=== PATIENT | female | born 1940 | race African-American/Black ===

== ENCOUNTER 2018-02-11 12:16 | Inpatient (IN) | payer MEDICARE, MEDICAID ==
[~2018-02-11] VITALS: Ht 162.6 cm; Wt 54.9 kg
[2018-02-11] MEDS ORDERED: ONDANSETRON HCL 4MG/2ML INJ IV STA (13:24)
[2018-02-11] MEDS ORDERED: SODIUM CHLORIDE 0.9% 1,000 ML IV ONE (13:24)
[2018-02-11] MEDS ORDERED: MORPHINE SULFATE 4 MG/ML CPJ (NOT FOR IM USE) IV STA (13:24)
[2018-02-11 14:24] LABS: BASOPHILS % 0.9 % (0.0-2.0); EOSINOPHILS % 0.5 % (0.0-5.0); HEMATOCRIT. 35.8 % (36.0-48.0); HEMOGLOBIN. 11.9 g/dL (12.0-16.0); LYMPHOCYTES % 7.6 % (20.0-50.0); MEAN CORPUSCULAR HEMOGLOBIN 30.5 pg (28.0-32.0); MEAN CORPUSCULAR VOLUME 92.1 fL (81.0-99.0); MEAN PLATELET VOLUME 8.2 fl (7.4-10.4); PLATELET 479 x1000/uL (130-400); RED BLOOD CELL COUNT 3.89 mill/uL (4.2-5.4); RED CELL DISTRIBUTION WIDTH 14.5 % (11.6-14.6)
[2018-02-11 14:33] LABS: CHLORIDE 107 mEq/L (98-107); PARTIAL THROMBOPLASTIN TIME 26.6 sec (23.4-31.0); PROTHROMBIN TIME 10.3 sec (9.1-11.1)
[2018-02-11 14:39] LABS: ETHANOL BLOOD < 10 mg/dL
[2018-02-11 20:00] VITALS: BP 111/79
[2018-02-11 20:29] VITALS: BP 108/76
[2018-02-11] MEDS ORDERED: GUAIFENESIN 200MG/10ML SUGAR FREE UDC PO PRN (22:00)
[2018-02-11] MEDS ORDERED: DIPHENHYDRAMINE 50MG/ML VIAL IV PRN (22:00)
[2018-02-11] MEDS ORDERED: MAGNESIUM/ALUMINUM HYDROXIDE/SIMETHICONE 30ML UDC PO PRN (22:00)
[2018-02-12] VITALS: BP 134/86
[2018-02-12] MEDS: MORPHINE SULFATE 4 MG/ML CPJ (NOT FOR IM USE) IV PRN ×3 (00:36→17:22)
[2018-02-12] MEDS: DEXT 5%/0.45% NACL 1000ML 1,000 ML IV SCH ×2 (00:44→17:21)
[2018-02-12] MEDS: ONDANSETRON HCL 4MG/2ML INJ IV PRN (01:08)
[2018-02-12] MEDS: DOCUSATE SODIUM 100MG CAPSULE PO PRN (03:33)
[2018-02-12 04:00] VITALS: BP 136/82
[2018-02-12] MEDS: LORAZEPAM 0.5MG TABLET PO PRN (05:06)
[2018-02-12 06:51] LABS: BASOPHILS % 0.6 % (0.0-2.0); EOSINOPHILS % 1.3 % (0.0-5.0); HEMATOCRIT. 31.9 % (36.0-48.0); HEMOGLOBIN. 10.3 g/dL (12.0-16.0); LYMPHOCYTES % 9.6 % (20.0-50.0); MEAN CORPUSCULAR HEMOGLOBIN 30.2 pg (28.0-32.0); MEAN CORPUSCULAR VOLUME 93.3 fL (81.0-99.0); MEAN PLATELET VOLUME 7.3 fl (7.4-10.4); MONOCYTES % 7.5 % (2.0-8.0); PLATELET 428 x1000/uL (130-400); RED BLOOD CELL COUNT 3.42 mill/uL (4.2-5.4); RED CELL DISTRIBUTION WIDTH 14.4 % (11.6-14.6)
[2018-02-12 07:17] LABS: CHLORIDE 107 mEq/L (98-107)
[2018-02-12 07:27] LABS: LDL CHOLESTEROL 82 mg/dL (5-100); PHOSPHORUS 3.4 mg/dL (2.5-4.9)
[2018-02-12 07:29] LABS: HDL CHOLESTEROL 49 mg/dL (40-59); T4 FREE 1.05 ng/dL (0.76-1.46)
[2018-02-12 08:00] VITALS: BP 134/82
[2018-02-12] MEDS: ENOXAPARIN 40MG/0.4ML SYR SUBCUT SCH (09:19)
[2018-02-12] MEDS: HYDROCODONE/ACETAMINOPHEN 5/325MG TABLET PO PRN ×2 (09:20→21:04)
[2018-02-12 12:00] VITALS: BP 111/75
[2018-02-12 16:00] VITALS: BP 152/85
[2018-02-12 20:00] VITALS: BP 126/74
[2018-02-13] VITALS: BP 139/96
[2018-02-13 04:00] VITALS: BP 153/97
[2018-02-13 08:00] VITALS: BP 143/98
[2018-02-13] MEDS: DEXT 5%/0.45% NACL 1000ML 1,000 ML IV SCH (08:44)
[2018-02-13] MEDS: DOCUSATE SODIUM 100MG CAPSULE PO PRN (08:45)
[2018-02-13] MEDS: ENOXAPARIN 40MG/0.4ML SYR SUBCUT SCH (08:46)
[2018-02-13] MEDS: MORPHINE SULFATE 4 MG/ML CPJ (NOT FOR IM USE) IV PRN ×2 (08:48→15:21)
[2018-02-13 12:00] VITALS: BP 164/130
[2018-02-13] MEDS: CLONIDINE 0.1MG TABLET PO PRN (15:27)
[2018-02-13 16:00] VITALS: BP 125/66
[2018-02-13 20:00] VITALS: BP 99/81
[2018-02-13] MEDS: HYDROCODONE/ACETAMINOPHEN 5/325MG TABLET PO PRN (20:12)
[2018-02-14] VITALS: BP 119/81
[2018-02-14] MEDS: DEXT 5%/0.45% NACL 1000ML 1,000 ML IV SCH ×2 (03:33→22:23)
[2018-02-14] MEDS: MORPHINE SULFATE 4 MG/ML CPJ (NOT FOR IM USE) IV PRN ×2 (03:46→08:38)
[2018-02-14 04:00] VITALS: BP 136/93
[2018-02-14 08:00] VITALS: BP 122/65
[2018-02-14 08:26] LABS: BASOPHILS % 0.4 % (0.0-2.0); EOSINOPHILS % 0.4 % (0.0-5.0); HEMATOCRIT. 33.1 % (36.0-48.0); HEMOGLOBIN. 10.8 g/dL (12.0-16.0); LYMPHOCYTES % 8.4 % (20.0-50.0); MEAN CORPUSCULAR HEMOGLOBIN 30.2 pg (28.0-32.0); MEAN CORPUSCULAR VOLUME 92.4 fL (81.0-99.0); MEAN PLATELET VOLUME 7.8 fl (7.4-10.4); MONOCYTES % 7.6 % (2.0-8.0); NEUTROPHILS % 83.2 % (40.0-76.0); PLATELET 369 x1000/uL (130-400); RED BLOOD CELL COUNT 3.58 mill/uL (4.2-5.4); RED CELL DISTRIBUTION WIDTH 14.2 % (11.6-14.6)
[2018-02-14] MEDS: ENOXAPARIN 40MG/0.4ML SYR SUBCUT SCH (08:37)
[2018-02-14 08:39] LABS: CHLORIDE 101 mEq/L (98-107)
[2018-02-14 12:00] VITALS: BP 129/88
[2018-02-14] MEDS: HYDROCODONE/ACETAMINOPHEN 10/325MG TABLET PO PRN ×3 (12:24→21:43)
[2018-02-14] MEDS ORDERED: IOHEXOL-350 100 ML BOTTLE ONE (14:25)
[2018-02-14 14:44] LABS: CLARITY URINE CLOUDY (CLEAR); COLOR URINE YELLOW (YELLOW); KETONES URINE NEGATIVE (NEGATIVE); LEUKOCYTE ESTERASE URINE 1+ (NEGATIVE); NITRITE URINE POSITIVE (NEGATIVE); OCCULT BLOOD URINE 1+ (NEGATIVE); PROTEIN URINE NEGATIVE (NEGATIVE); SPECIFIC GRAVITY URINE 1.016 (1.005-1.030); UROBILINOGEN URINE 0.2 E.U./dL (0.2-1.0)
[2018-02-14 16:00] VITALS: BP 115/73
[2018-02-14] MEDS: DOCUSATE SODIUM 100MG CAPSULE PO PRN (20:53)
[2018-02-15] VITALS (69 sets, daily range): BP systolic 43–151; BP diastolic 22–135
[2018-02-15] MEDS: IPRATROPIUM/ALBUTEROL 0.5-3(2.5)MG/3ML NEB INH PRN (02:56)
[2018-02-15 06:07] LABS: BG BASE EXCESS 0.4 mmol/L (-2.0-2.0); BG CARBOXYHEMOGLOBIN 1.5 % (0.5-1.5); BG DEOXYHEMOGLOBIN 7.3 % (0.0-5.0); BG FRACTION INSPIRED OXYGEN 36; BG HCO3 ACT 23.6 mmol/L (22.0-26.0); BG METHEMOGLOBIN 0.1 % (0.0-1.5); BG OXYGEN SATURATION 92.6 % (92.0-98.5); BG OXYHEMOGLOBIN 91.1 % (94.0-97.0); BG PH 7.472 (7.350-7.450); BG PO2 64.2 mmHg (75.0-100.0); BG SAMPLE SITE RIGHT RADIAL; BG VENT MODE NASAL CANNULA
[2018-02-15] MEDS: MORPHINE SULFATE 4 MG/ML CPJ (NOT FOR IM USE) IV PRN ×3 (08:02→20:58)
[2018-02-15] MEDS: ENOXAPARIN 40MG/0.4ML SYR SUBCUT SCH (08:03)
[2018-02-15] MEDS ORDERED: CEFTRIAXONE 1 G PREMIX 50 ML IV SCH (08:45)
[2018-02-15] MEDS ORDERED: DILTIAZEM HCL 5MG/ML 5ML VIAL IV SCH (09:15)
[2018-02-15] MEDS: PHENYLEPHRINE 20 MG in DEXT 5% WATER 248 ML IV PRN ×2 (09:32→13:04)
[2018-02-15] MEDS: DILTIAZEM HCL 125 MG in DEXT 5% WATER 100 ML IV PRN (09:38)
[2018-02-15] MEDS: DEXT 5%/0.45% NACL 1000ML 1,000 ML IV SCH (11:13)
[2018-02-15] MEDS: LEVOFLOXACIN 750MG PREMIX 150 ML IV SCH (11:13)
[2018-02-15 11:22] LABS: CREATINE KINASE 158 IU/L (26-192)
[2018-02-15] MEDS ORDERED: DIGOXIN 500MCG/2ML AMP IV NR (12:59)
[2018-02-15] MEDS: ACETAMINOPHEN 325MG TABLET PO PRN (13:08)
[2018-02-15] MEDS ORDERED: DEXT 5% IV PRN (13:16)
[2018-02-15] MEDS ORDERED: WATER IV PRN (13:16)
[2018-02-15] MEDS ORDERED: PHENYLEPHRINE IV PRN (13:16)
[2018-02-15] MEDS: BUDESONIDE 0.5MG/2ML NEB HHN SCH ×2 (16:31→20:21)
[2018-02-15] MEDS: IPRATROPIUM BROMIDE (0.02%) 0.5MG/2.5ML NEB HHN SCH ×2 (16:31→20:21)
[2018-02-15] MEDS: PHENYLEPHRINE 40MG in DEXT 5% WATER 250ML (QUADRUPLE CONC) IV PRN (17:40)
[2018-02-16] VITALS (78 sets, daily range): BP systolic 67–142; BP diastolic 33–83
[2018-02-16] MEDS: IPRATROPIUM BROMIDE (0.02%) 0.5MG/2.5ML NEB HHN SCH ×4 (01:05→20:31)
[2018-02-16] MEDS: PHENYLEPHRINE 40MG in DEXT 5% WATER 250ML (QUADRUPLE CONC) IV PRN ×2 (01:09→09:20)
[2018-02-16] MEDS: MORPHINE SULFATE 4 MG/ML CPJ (NOT FOR IM USE) IV PRN ×4 (02:27→21:25)
[2018-02-16 05:57] LABS: HEMATOCRIT. 29.7 % (36.0-48.0); HEMOGLOBIN. 9.6 g/dL (12.0-16.0); MEAN CORPUSCULAR HEMOGLOBIN 30.1 pg (28.0-32.0); MEAN CORPUSCULAR VOLUME 93.2 fL (81.0-99.0); MEAN PLATELET VOLUME 8.1 fl (7.4-10.4); PLATELET 300 x1000/uL (130-400); RED BLOOD CELL COUNT 3.19 mill/uL (4.2-5.4); RED CELL DISTRIBUTION WIDTH 14.6 % (11.6-14.6)
[2018-02-16 05:58] LABS: CHLORIDE 105 mEq/L (98-107)
[2018-02-16] MEDS: DILTIAZEM HCL 125 MG in DEXT 5% WATER 100 ML IV PRN (06:34)
[2018-02-16] MEDS: DEXT 5%/0.45% NACL 1000ML 1,000 ML IV SCH (06:35)
[2018-02-16] MEDS: BUDESONIDE 0.5MG/2ML NEB HHN SCH ×2 (08:25→20:31)
[2018-02-16] MEDS: DOCUSATE SODIUM 100MG CAPSULE PO PRN (09:08)
[2018-02-16] MEDS: HYDROCODONE/ACETAMINOPHEN 5/325MG TABLET PO PRN (09:09)
[2018-02-16] MEDS: LORAZEPAM 0.5MG TABLET PO PRN ×2 (09:09→15:27)
[2018-02-16] MEDS: ENOXAPARIN 40MG/0.4ML SYR SUBCUT SCH (09:14)
[2018-02-16 10:30] LABS: PLATELET ESTIMATE NORMAL
[2018-02-16] MEDS: DILTIAZEM HCL 60MG TABLET PO SCH ×2 (13:27→21:25)
[2018-02-16] MEDS: METRONIDAZOLE 500 MG PREMIX 100 ML IV SCH ×2 (13:27→21:25)
[2018-02-16] MEDS ORDERED: LACTULOSE 20G/30ML UDC PO NR (17:15)
[2018-02-16 20:28] LABS: *AMPHETAMINES SCREEN URINE NEGATIVE (NEGATIVE); *BARBITURATES SCREEN URINE NEGATIVE (NEGATIVE)
[2018-02-16 20:29] LABS: *BENZODIAZEPINES SCREEN URINE NEGATIVE (NEGATIVE); *COCAINE SCREEN URINE NEGATIVE (NEGATIVE); CANNABINOID URINE SCREEN NEGATIVE (NEGATIVE); METHADONE URINE SCREEN NEGATIVE (NEGATIVE); OPIATES URINE SCREEN PRESUMTIVE POSITIVE (NEGATIVE); PHENCYCLIDINE URINE SCREEN NEGATIVE (NEGATIVE)
[2018-02-17] VITALS (13 sets, daily range): BP systolic 97–131; BP diastolic 56–90
[2018-02-17] MEDS: IPRATROPIUM BROMIDE (0.02%) 0.5MG/2.5ML NEB HHN SCH ×4 (01:58→19:56)
[2018-02-17] MEDS: METRONIDAZOLE 500 MG PREMIX 100 ML IV SCH ×2 (04:20→13:50)
[2018-02-17] MEDS: MORPHINE SULFATE 4 MG/ML CPJ (NOT FOR IM USE) IV PRN ×4 (04:20→18:59)
[2018-02-17] MEDS: DILTIAZEM HCL 60MG TABLET PO SCH ×3 (04:21→22:00)
[2018-02-17] MEDS: DEXT 5%/0.45% NACL 1000ML 1,000 ML IV SCH (04:22)
[2018-02-17 05:01] LABS: BASOPHILS % 0.5 % (0.0-2.0); EOSINOPHILS % 1.3 % (0.0-5.0); HEMATOCRIT. 27.4 % (36.0-48.0); HEMOGLOBIN. 9.1 g/dL (12.0-16.0); LYMPHOCYTES % 8.3 % (20.0-50.0); MEAN CORPUSCULAR HEMOGLOBIN 30.4 pg (28.0-32.0); MEAN CORPUSCULAR VOLUME 91.7 fL (81.0-99.0); MEAN PLATELET VOLUME 8.1 fl (7.4-10.4); MONOCYTES % 7.4 % (2.0-8.0); NEUTROPHILS % 82.5 % (40.0-76.0); PLATELET 219 x1000/uL (130-400); RED BLOOD CELL COUNT 2.98 mill/uL (4.2-5.4); RED CELL DISTRIBUTION WIDTH 14.3 % (11.6-14.6)
[2018-02-17 05:16] LABS: CHLORIDE 106 mEq/L (98-107)
[2018-02-17] MEDS: ENOXAPARIN 40MG/0.4ML SYR SUBCUT SCH (08:25)
[2018-02-17] MEDS: BUDESONIDE 0.5MG/2ML NEB HHN SCH ×2 (08:41→19:56)
[2018-02-17] MEDS ORDERED: DOCUSATE SODIUM 250MG CAPSULE PO NR (09:45)
[2018-02-17] MEDS ORDERED: POTASSIUM CHLORIDE 20MEQ/PACKET PO NR (10:30)
[2018-02-17] MEDS: MAGNESIUM OXIDE 400MG TABLET PO SCH (12:12)
[2018-02-17] MEDS: LEVOFLOXACIN 750MG PREMIX 150 ML IV SCH ×2 (12:12→12:17)
[2018-02-17] MEDS: ALPRAZOLAM 0.25 MG TABLET PO PRN (21:21)
[2018-02-17] MEDS: HYDROCODONE/ACETAMINOPHEN 10/325MG TABLET PO PRN (21:22)
[2018-02-18] VITALS: BP 126/89
[2018-02-18] MEDS: METRONIDAZOLE 500 MG PREMIX 100 ML IV SCH ×4 (01:03→21:05)
[2018-02-18] MEDS: IPRATROPIUM BROMIDE (0.02%) 0.5MG/2.5ML NEB HHN SCH ×2 (01:21→08:03)
[2018-02-18 04:00] VITALS: BP 155/105
[2018-02-18] MEDS: CLONIDINE 0.1MG TABLET PO PRN (04:48)
[2018-02-18] MEDS: LACTULOSE 20G/30ML UDC PO PRN (05:19)
[2018-02-18] MEDS: MORPHINE SULFATE 4 MG/ML CPJ (NOT FOR IM USE) IV PRN ×2 (05:20→18:56)
[2018-02-18] MEDS: DILTIAZEM HCL 60MG TABLET PO SCH ×3 (06:14→21:02)
[2018-02-18 06:43] LABS: BASOPHILS % 0.6 % (0.0-2.0); EOSINOPHILS % 2.1 % (0.0-5.0); HEMATOCRIT. 30.5 % (36.0-48.0); HEMOGLOBIN. 10.3 g/dL (12.0-16.0); LYMPHOCYTES % 14.5 % (20.0-50.0); MEAN CORPUSCULAR HEMOGLOBIN 30.7 pg (28.0-32.0); MEAN CORPUSCULAR VOLUME 90.8 fL (81.0-99.0); MEAN PLATELET VOLUME 8.1 fl (7.4-10.4); MONOCYTES % 7.9 % (2.0-8.0); NEUTROPHILS % 74.9 % (40.0-76.0); PLATELET 252 x1000/uL (130-400); RED BLOOD CELL COUNT 3.36 mill/uL (4.2-5.4); RED CELL DISTRIBUTION WIDTH 14.3 % (11.6-14.6)
[2018-02-18 06:50] LABS: CHLORIDE 106 mEq/L (98-107)
[2018-02-18 08:00] VITALS: BP 110/81
[2018-02-18] MEDS: BUDESONIDE 0.5MG/2ML NEB HHN SCH (08:03)
[2018-02-18] MEDS: ALPRAZOLAM 0.25 MG TABLET PO PRN (08:34)
[2018-02-18] MEDS: HYDROCODONE/ACETAMINOPHEN 10/325MG TABLET PO PRN ×3 (08:34→22:09)
[2018-02-18] MEDS: MAGNESIUM OXIDE 400MG TABLET PO SCH (08:34)
[2018-02-18] MEDS: DOCUSATE SODIUM 250MG CAPSULE PO SCH (08:34)
[2018-02-18] MEDS: ENOXAPARIN 40MG/0.4ML SYR SUBCUT SCH (08:35)
[2018-02-18 12:00] VITALS: BP 114/69
[2018-02-18] MEDS ORDERED: LACTULOSE 20G/30ML UDC PO SCH (14:15)
[2018-02-18 16:00] VITALS: BP 128/88
[2018-02-18] MEDS ORDERED: SORBITOL 70% SOLN 30ML PO SCH (16:00)
[2018-02-18 19:47] VITALS: BP 109/76
[2018-02-18] MEDS: IPRATROPIUM/ALBUTEROL 0.5-3(2.5)MG/3ML NEB INH PRN (20:20)
[2018-02-18] MEDS: LEVOFLOXACIN 750MG PREMIX 150 ML IV SCH (21:01)
[2018-02-19] VITALS: BP 117/74
[2018-02-19] MEDS: IPRATROPIUM/ALBUTEROL 0.5-3(2.5)MG/3ML NEB INH PRN ×3 (01:54→15:31)
[2018-02-19 04:00] VITALS: BP 116/74
[2018-02-19] MEDS: HYDROCODONE/ACETAMINOPHEN 10/325MG TABLET PO PRN ×3 (04:18→18:08)
[2018-02-19] MEDS: METRONIDAZOLE 500 MG PREMIX 100 ML IV SCH ×3 (05:15→21:13)
[2018-02-19] MEDS: MORPHINE SULFATE 4 MG/ML CPJ (NOT FOR IM USE) IV PRN ×2 (05:16→16:44)
[2018-02-19] MEDS: DILTIAZEM HCL 60MG TABLET PO SCH ×3 (05:17→21:13)
[2018-02-19 07:01] LABS: BASOPHILS % 0.5 % (0.0-2.0); EOSINOPHILS % 1.2 % (0.0-5.0); HEMATOCRIT. 32.3 % (36.0-48.0); HEMOGLOBIN. 10.6 g/dL (12.0-16.0); LYMPHOCYTES % 11.4 % (20.0-50.0); MEAN CORPUSCULAR HEMOGLOBIN 29.9 pg (28.0-32.0); MEAN PLATELET VOLUME 8.4 fl (7.4-10.4); MONOCYTES % 7.9 % (2.0-8.0); PLATELET 245 x1000/uL (130-400); RED BLOOD CELL COUNT 3.55 mill/uL (4.2-5.4); RED CELL DISTRIBUTION WIDTH 14.2 % (11.6-14.6)
[2018-02-19 07:11] LABS: CHLORIDE 104 mEq/L (98-107)
[2018-02-19] MEDS: DOCUSATE SODIUM 250MG CAPSULE PO SCH (08:24)
[2018-02-19] MEDS: MAGNESIUM OXIDE 400MG TABLET PO SCH (08:24)
[2018-02-19] MEDS: ENOXAPARIN 40MG/0.4ML SYR SUBCUT SCH (08:25)
[2018-02-19] MEDS: IPRATROPIUM BROMIDE (0.02%) 0.5MG/2.5ML NEB HHN SCH ×3 (09:49→21:58)
[2018-02-19] MEDS: LEVOFLOXACIN 750MG PREMIX 150 ML IV SCH (10:56)
[2018-02-19 12:00] VITALS: BP 99/71
[2018-02-19] MEDS: ONDANSETRON HCL 4MG/2ML INJ IV PRN (13:17)
[2018-02-19] MEDS: LACTULOSE 20G/30ML UDC PO PRN (13:19)
[2018-02-19] MEDS ORDERED: NA PHOS,M-B/NA PHOS,DI-BA ENEMA 118ML PR PRN (13:45)
[2018-02-19 15:23] LABS: CLARITY URINE CLEAR (CLEAR); COLOR URINE YELLOW (YELLOW); KETONES URINE NEGATIVE (NEGATIVE); LEUKOCYTE ESTERASE URINE 1+ (NEGATIVE); NITRITE URINE NEGATIVE (NEGATIVE); OCCULT BLOOD URINE 1+ (NEGATIVE); PH URINE 7.5 (4.5-8.0); PROTEIN URINE 1+ (NEGATIVE); SPECIFIC GRAVITY URINE 1.017 (1.005-1.030)
[2018-02-19 16:00] VITALS: BP 128/77
[2018-02-19 20:00] VITALS: BP 115/66
[2018-02-19] MEDS: RISPERIDONE 0.25MG TABLET PO SCH (21:12)
[2018-02-20] VITALS: BP 108/65
[2018-02-20] MEDS: MORPHINE SULFATE 4 MG/ML CPJ (NOT FOR IM USE) IV PRN ×2 (00:22→20:28)
[2018-02-20] MEDS: IPRATROPIUM BROMIDE (0.02%) 0.5MG/2.5ML NEB HHN SCH ×3 (00:37→15:27)
[2018-02-20] MEDS: ALPRAZOLAM 0.25 MG TABLET PO PRN ×3 (01:38→20:25)
[2018-02-20 04:00] VITALS: BP 101/69
[2018-02-20] MEDS: METRONIDAZOLE 500 MG PREMIX 100 ML IV SCH ×3 (05:07→22:06)
[2018-02-20] MEDS: DILTIAZEM HCL 60MG TABLET PO SCH ×3 (05:09→21:07)
[2018-02-20 08:00] VITALS: BP 111/82
[2018-02-20] MEDS: ENOXAPARIN 40MG/0.4ML SYR SUBCUT SCH (09:25)
[2018-02-20] MEDS: MAGNESIUM OXIDE 400MG TABLET PO SCH (09:26)
[2018-02-20] MEDS: ACETAMINOPHEN 325MG TABLET PO PRN (09:26)
[2018-02-20] MEDS: DOCUSATE SODIUM 250MG CAPSULE PO SCH (09:26)
[2018-02-20] MEDS ORDERED: LACTULOSE 20G/30ML UDC PO NR (10:15)
[2018-02-20 12:00] VITALS: BP 104/68
[2018-02-20] MEDS: LACTULOSE 20G/30ML UDC PO PRN (14:52)
[2018-02-20 16:00] VITALS: BP 122/81
[2018-02-20 20:00] VITALS: BP 104/73
[2018-02-20] MEDS: IPRATROPIUM/ALBUTEROL 0.5-3(2.5)MG/3ML NEB INH PRN (21:02)
[2018-02-20] MEDS: RISPERIDONE 0.25MG TABLET PO SCH (22:06)
[2018-02-21] VITALS: BP 124/80
[2018-02-21] MEDS: IPRATROPIUM BROMIDE (0.02%) 0.5MG/2.5ML NEB HHN SCH ×3 (03:10→21:24)
[2018-02-21] MEDS: DILTIAZEM HCL 60MG TABLET PO SCH ×3 (05:11→21:32)
[2018-02-21] MEDS: METRONIDAZOLE 500 MG PREMIX 100 ML IV SCH ×3 (05:17→21:23)
[2018-02-21 08:00] VITALS: BP 119/76
[2018-02-21] MEDS: ENOXAPARIN 40MG/0.4ML SYR SUBCUT SCH (08:45)
[2018-02-21] MEDS: MAGNESIUM OXIDE 400MG TABLET PO SCH (08:45)
[2018-02-21] MEDS: DOCUSATE SODIUM 250MG CAPSULE PO SCH (08:45)
[2018-02-21] MEDS: MORPHINE SULFATE 4 MG/ML CPJ (NOT FOR IM USE) IV PRN ×3 (08:46→21:21)
[2018-02-21] MEDS: LEVOFLOXACIN 750MG PREMIX 150 ML IV SCH (10:30)
[2018-02-21] MEDS: GUAIFENESIN 600MG ER TABLET PO SCH ×2 (10:31→21:35)
[2018-02-21 12:00] VITALS: BP 131/62
[2018-02-21] MEDS: IPRATROPIUM/ALBUTEROL 0.5-3(2.5)MG/3ML NEB INH PRN (13:43)
[2018-02-21 16:00] VITALS: BP 100/67
[2018-02-21] MEDS: ALPRAZOLAM 0.25 MG TABLET PO PRN (17:22)
[2018-02-21 20:00] VITALS: BP 121/68
[2018-02-21] MEDS: RISPERIDONE 0.25MG TABLET PO SCH (21:34)
[2018-02-22] VITALS: BP 120/77
[2018-02-22] MEDS: IPRATROPIUM BROMIDE (0.02%) 0.5MG/2.5ML NEB HHN SCH ×2 (01:14→20:06)
[2018-02-22 04:00] VITALS: BP 119/67
[2018-02-22] MEDS: DILTIAZEM HCL 60MG TABLET PO SCH ×3 (05:11→21:40)
[2018-02-22] MEDS: METRONIDAZOLE 500 MG PREMIX 100 ML IV SCH ×3 (05:17→21:40)
[2018-02-22] MEDS: MORPHINE SULFATE 4 MG/ML CPJ (NOT FOR IM USE) IV PRN ×2 (05:44→12:26)
[2018-02-22 08:00] VITALS: BP 122/84
[2018-02-22] MEDS: GUAIFENESIN 600MG ER TABLET PO SCH ×2 (08:01→21:40)
[2018-02-22] MEDS: DOCUSATE SODIUM 250MG CAPSULE PO SCH (08:01)
[2018-02-22] MEDS: MAGNESIUM OXIDE 400MG TABLET PO SCH (08:01)
[2018-02-22] MEDS: ENOXAPARIN 40MG/0.4ML SYR SUBCUT SCH (09:00)
[2018-02-22 12:00] VITALS: BP 118/81
[2018-02-22] MEDS ORDERED: EPINEPHRINE 1:1000 1 MG/ML AMP ONE (14:31)
[2018-02-22] MEDS ORDERED: ROPIVACAINE HCL 10MG/ML 20 ML VIAL EPI ONE (14:31)
[2018-02-22] MEDS ORDERED: MORPHINE SULFATE/PF 1MG/ML 10ML AMP ONE (14:32)
[2018-02-22] MEDS ORDERED: VANCOMYCIN HCL 500 MG/VIAL ONE (14:32)
[2018-02-22] MEDS ORDERED: NORMAL SALINE 0.9% 10 ML SYR ONE (14:44)
[2018-02-22] MEDS ORDERED: TRANEXAMIC ACID 1,000 MG/10 ML IV SCH (14:45)
[2018-02-22] MEDS ORDERED: KETOROLAC 30MG/ML VIAL IV SCH (14:45)
[2018-02-22] MEDS ORDERED: TRANEXAMIC ACID 1,000 MG in SODIUM CHLORIDE 0.9% 100 ML IV NR ×2 (14:45→14:50)
[2018-02-22 16:52] LABS: EOSINOPHILS % 1.4 % (0.0-5.0); HEMATOCRIT. 35.2 % (36.0-48.0); HEMOGLOBIN. 11.8 g/dL (12.0-16.0); LYMPHOCYTES % 14.6 % (20.0-50.0); MEAN CORPUSCULAR HEMOGLOBIN 30.2 pg (28.0-32.0); MEAN CORPUSCULAR VOLUME 90.1 fL (81.0-99.0); MEAN PLATELET VOLUME 7.4 fl (7.4-10.4); MONOCYTES % 9.7 % (2.0-8.0); NEUTROPHILS % 73.3 % (40.0-76.0); PLATELET 361 x1000/uL (130-400); RED CELL DISTRIBUTION WIDTH 14.5 % (11.6-14.6)
[2018-02-22 17:17] LABS: CHLORIDE 104 mEq/L (98-107)
[2018-02-22] MEDS ORDERED: FENTANYL CITRATE/PF 50MCG/ML 5ML VIAL ONE (17:32)
[2018-02-22] MEDS ORDERED: MIDAZOLAM HCL 2 MG/2 ML VIAL ONE (17:32)
[2018-02-22] MEDS ORDERED: PROPOFOL 200MG/20ML VIAL IV ONE (17:32)
[2018-02-22] MEDS ORDERED: ROCURONIUM BROMIDE 10MG/ML VIAL 5ML IV ONE (17:57)
[2018-02-22] MEDS ORDERED: DEXAMETHASONE 4MG/ML 1ML VIAL ONE (18:11)
[2018-02-22] MEDS ORDERED: CEFAZOLIN SODIUM 1000MG/VIAL ONE (18:11)
[2018-02-22] MEDS ORDERED: NEOSTIGMINE METHYLSULFATE 1MG/ML 10 ML VIAL ONE (19:29)
[2018-02-22] MEDS ORDERED: GLYCOPYRROLATE 0.2 MG/ML 2ML VIAL ONE (19:29)
[2018-02-22] MEDS ORDERED: CEFAZOLIN 1000MG PREMIX 50 ML IV SCH (19:30)
[2018-02-22] MEDS ORDERED: LIDOCAINE HCL/PF 1% 10 MG/ML 5ML VIAL ONE (19:30)
[2018-02-22] MEDS ORDERED: NALOXONE INJ IV PRN (20:00)
[2018-02-22] MEDS ORDERED: HYDROMORPHONE PCA 10MG/50ML IV PRN (20:00)
[2018-02-22] MEDS: RISPERIDONE 0.25MG TABLET PO SCH (21:40)
[2018-02-23] VITALS: BP 104/67
[2018-02-23] MEDS: IPRATROPIUM BROMIDE (0.02%) 0.5MG/2.5ML NEB HHN SCH ×4 (01:53→21:01)
[2018-02-23] MEDS: CEFAZOLIN 1000MG PREMIX 50 ML IV SCH ×3 (02:54→18:36)
[2018-02-23] MEDS: DILTIAZEM HCL 60MG TABLET PO SCH ×3 (05:28→18:36)
[2018-02-23] MEDS: METRONIDAZOLE 500 MG PREMIX 100 ML IV SCH ×2 (05:28→14:17)
[2018-02-23 07:16] LABS: CHLORIDE 108 mEq/L (98-107)
[2018-02-23 07:22] LABS: BASOPHILS % 0.1 % (0.0-2.0); HEMATOCRIT. 31.5 % (36.0-48.0); HEMOGLOBIN. 10.4 g/dL (12.0-16.0); LYMPHOCYTES % 7.3 % (20.0-50.0); MEAN CORPUSCULAR HEMOGLOBIN 30.1 pg (28.0-32.0); MEAN CORPUSCULAR VOLUME 90.8 fL (81.0-99.0); MONOCYTES % 7.5 % (2.0-8.0); NEUTROPHILS % 85.1 % (40.0-76.0); PLATELET 364 x1000/uL (130-400); RED BLOOD CELL COUNT 3.47 mill/uL (4.2-5.4); RED CELL DISTRIBUTION WIDTH 14.3 % (11.6-14.6)
[2018-02-23] MEDS: DOCUSATE SODIUM 250MG CAPSULE PO SCH (07:40)
[2018-02-23 07:53] VITALS: BP 113/62
[2018-02-23] MEDS: VERAPAMIL HCL 2.5 MG/1 ML 2ML VIAL IV PRN (08:55)
[2018-02-23] MEDS: MAGNESIUM OXIDE 400MG TABLET PO SCH (09:00)
[2018-02-23] MEDS: ENOXAPARIN 40MG/0.4ML SYR SUBCUT SCH (10:15)
[2018-02-23] MEDS: GUAIFENESIN 600MG ER TABLET PO SCH ×2 (10:16→20:59)
[2018-02-23] MEDS: HYDROCODONE/ACETAMINOPHEN 10/325MG TABLET PO PRN ×3 (10:16→18:28)
[2018-02-23 12:00] VITALS: BP 139/79
[2018-02-23 16:00] VITALS: BP 90/63
[2018-02-23 20:00] VITALS: BP 100/65
[2018-02-23] MEDS ORDERED: HYDROCODONE/ACETAMINOPHEN 10/325MG TABLET PO PRN (20:45)
[2018-02-23] MEDS: RISPERIDONE 0.25MG TABLET PO SCH (20:59)
[2018-02-24] VITALS: BP 116/70
[2018-02-24] MEDS: DILTIAZEM HCL 60MG TABLET PO SCH ×4 (00:47→17:43)
[2018-02-24] MEDS: IPRATROPIUM BROMIDE (0.02%) 0.5MG/2.5ML NEB HHN SCH ×4 (01:03→21:45)
[2018-02-24 04:00] VITALS: BP 112/67
[2018-02-24] MEDS: CEFAZOLIN 1000MG PREMIX 50 ML IV SCH ×3 (05:28→17:42)
[2018-02-24] MEDS: HYDROCODONE/ACETAMINOPHEN 10/325MG TABLET PO PRN ×2 (07:27→14:47)
[2018-02-24 08:00] VITALS: BP 116/63
[2018-02-24] MEDS: DOCUSATE SODIUM 250MG CAPSULE PO SCH (08:36)
[2018-02-24] MEDS: MAGNESIUM OXIDE 400MG TABLET PO SCH (09:00)
[2018-02-24] MEDS: GUAIFENESIN 600MG ER TABLET PO SCH ×2 (09:00→22:17)
[2018-02-24] MEDS: ENOXAPARIN 40MG/0.4ML SYR SUBCUT SCH (09:01)
[2018-02-24] MEDS: HYDROMORPHONE HCL/PF 2MG/ML CPJ IV PRN (11:39)
[2018-02-24 12:00] VITALS: BP 112/66
[2018-02-24] MEDS: FERROUS SULFATE 325MG TABLET PO SCH ×2 (12:11→17:43)
[2018-02-24] MEDS: TRAMADOL 50MG TABLET PO SCH ×2 (14:00→22:16)
[2018-02-24] MEDS: IPRATROPIUM/ALBUTEROL 0.5-3(2.5)MG/3ML NEB INH PRN (15:49)
[2018-02-24 16:12] VITALS: BP 98/61
[2018-02-24 20:00] VITALS: BP 106/62
[2018-02-24] MEDS: ASCORBIC ACID 500 MG TABLET PO SCH (22:08)
[2018-02-24] MEDS: RISPERIDONE 0.25MG TABLET PO SCH (22:08)
[2018-02-25] VITALS: BP 119/44
[2018-02-25] MEDS: HYDROMORPHONE HCL/PF 2MG/ML CPJ IV PRN (00:23)
[2018-02-25] MEDS: IPRATROPIUM BROMIDE (0.02%) 0.5MG/2.5ML NEB HHN SCH ×2 (01:22→20:10)
[2018-02-25 04:00] VITALS: BP 121/53
[2018-02-25] MEDS: TRAMADOL 50MG TABLET PO SCH ×3 (06:18→21:57)
[2018-02-25] MEDS: DILTIAZEM HCL 60MG TABLET PO SCH ×4 (06:19→17:38)
[2018-02-25 07:22] LABS: BASOPHILS % 0.4 % (0.0-2.0); EOSINOPHILS % 0.9 % (0.0-5.0); HEMATOCRIT. 28.8 % (36.0-48.0); HEMOGLOBIN. 9.4 g/dL (12.0-16.0); LYMPHOCYTES % 9.8 % (20.0-50.0); MEAN CORPUSCULAR HEMOGLOBIN 30.1 pg (28.0-32.0); MEAN CORPUSCULAR VOLUME 91.8 fL (81.0-99.0); MONOCYTES % 7.4 % (2.0-8.0); NEUTROPHILS % 81.5 % (40.0-76.0); PLATELET 338 x1000/uL (130-400); RED BLOOD CELL COUNT 3.13 mill/uL (4.2-5.4); RED CELL DISTRIBUTION WIDTH 14.9 % (11.6-14.6)
[2018-02-25 08:00] VITALS: BP 111/56
[2018-02-25] MEDS: ASCORBIC ACID 500 MG TABLET PO SCH ×2 (08:29→21:57)
[2018-02-25] MEDS: MULTIVITAMINS,THER W-MINERALS TABLET PO SCH ×2 (08:29→09:00)
[2018-02-25] MEDS: DOCUSATE SODIUM 250MG CAPSULE PO SCH ×2 (08:29→09:00)
[2018-02-25] MEDS: GUAIFENESIN 600MG ER TABLET PO SCH ×4 (08:29→21:57)
[2018-02-25] MEDS: FERROUS SULFATE 325MG TABLET PO SCH ×3 (08:29→16:39)
[2018-02-25] MEDS: ENOXAPARIN 40MG/0.4ML SYR SUBCUT SCH (08:29)
[2018-02-25] MEDS: MAGNESIUM OXIDE 400MG TABLET PO SCH (08:29)
[2018-02-25] MEDS: HYDROCODONE/ACETAMINOPHEN 10/325MG TABLET PO PRN ×3 (08:30→23:56)
[2018-02-25 12:00] VITALS: BP 129/69
[2018-02-25 16:00] VITALS: BP 106/69
[2018-02-25 20:00] VITALS: BP 104/56
[2018-02-25] MEDS: IPRATROPIUM/ALBUTEROL 0.5-3(2.5)MG/3ML NEB INH PRN (20:11)
[2018-02-25] MEDS: RISPERIDONE 0.25MG TABLET PO SCH (21:57)
[2018-02-26] VITALS (8 sets, daily range): BP systolic 90–112; BP diastolic 54–69
[2018-02-26] MEDS: IPRATROPIUM BROMIDE (0.02%) 0.5MG/2.5ML NEB HHN SCH ×3 (00:30→12:00)
[2018-02-26] MEDS: TRAMADOL 50MG TABLET PO SCH ×3 (05:30→22:51)
[2018-02-26] MEDS: DILTIAZEM HCL 60MG TABLET PO SCH ×4 (05:31→17:36)
[2018-02-26] MEDS: HYDROCODONE/ACETAMINOPHEN 10/325MG TABLET PO PRN ×2 (06:29→16:40)
[2018-02-26] MEDS: FERROUS SULFATE 325MG TABLET PO SCH ×3 (07:40→16:40)
[2018-02-26] MEDS: IPRATROPIUM/ALBUTEROL 0.5-3(2.5)MG/3ML NEB INH PRN ×2 (08:06→20:51)
[2018-02-26] MEDS: ACETAMINOPHEN 325MG TABLET PO PRN ×2 (08:41→12:54)
[2018-02-26] MEDS: DOCUSATE SODIUM 250MG CAPSULE PO SCH (08:42)
[2018-02-26] MEDS: GUAIFENESIN 600MG ER TABLET PO SCH ×2 (08:42→20:28)
[2018-02-26] MEDS: MULTIVITAMINS,THER W-MINERALS TABLET PO SCH (08:43)
[2018-02-26] MEDS: MAGNESIUM OXIDE 400MG TABLET PO SCH (08:43)
[2018-02-26] MEDS: ASCORBIC ACID 500 MG TABLET PO SCH ×2 (08:43→20:28)
[2018-02-26] MEDS: ENOXAPARIN 40MG/0.4ML SYR SUBCUT SCH (08:43)
[2018-02-26] MEDS: RISPERIDONE 0.25MG TABLET PO SCH (20:28)
[2018-02-26] MEDS: HYDROMORPHONE HCL/PF 2MG/ML CPJ IV PRN (20:28)
[2018-02-26] MEDS: VERAPAMIL HCL 2.5 MG/1 ML 2ML VIAL IV PRN (21:19)
[2018-02-26] MEDS ORDERED: DIGOXIN 500MCG/2ML AMP IV NR (22:30)
[2018-02-27] VITALS (8 sets, daily range): BP systolic 96–118; BP diastolic 49–62
[2018-02-27] MEDS: DILTIAZEM HCL 60MG TABLET PO SCH ×4 (00:55→17:53)
[2018-02-27] MEDS: HYDROCODONE/ACETAMINOPHEN 10/325MG TABLET PO PRN ×3 (01:28→15:30)
[2018-02-27] MEDS: TRAMADOL 50MG TABLET PO SCH ×3 (06:29→21:48)
[2018-02-27 06:50] LABS: BASOPHILS % 0.7 % (0.0-2.0); EOSINOPHILS % 1.5 % (0.0-5.0); HEMATOCRIT. 28.5 % (36.0-48.0); HEMOGLOBIN. 9.3 g/dL (12.0-16.0); LYMPHOCYTES % 10.7 % (20.0-50.0); MEAN CORPUSCULAR HEMOGLOBIN 29.8 pg (28.0-32.0); MEAN PLATELET VOLUME 7.7 fl (7.4-10.4); MONOCYTES % 5.8 % (2.0-8.0); NEUTROPHILS % 81.3 % (40.0-76.0); PLATELET 436 x1000/uL (130-400); RED BLOOD CELL COUNT 3.13 mill/uL (4.2-5.4)
[2018-02-27 07:39] LABS: CHLORIDE 103 mEq/L (98-107)
[2018-02-27] MEDS: FERROUS SULFATE 325MG TABLET PO SCH ×3 (07:40→17:40)
[2018-02-27] MEDS: DOCUSATE SODIUM 250MG CAPSULE PO SCH (08:47)
[2018-02-27] MEDS: GUAIFENESIN 600MG ER TABLET PO SCH ×2 (08:47→20:47)
[2018-02-27] MEDS: ACETAMINOPHEN 325MG TABLET PO PRN (08:47)
[2018-02-27] MEDS: ASCORBIC ACID 500 MG TABLET PO SCH ×2 (08:50→20:47)
[2018-02-27] MEDS: MAGNESIUM OXIDE 400MG TABLET PO SCH (08:50)
[2018-02-27] MEDS: MULTIVITAMINS,THER W-MINERALS TABLET PO SCH (08:50)
[2018-02-27] MEDS: ENOXAPARIN 40MG/0.4ML SYR SUBCUT SCH (09:00)
[2018-02-27] MEDS: AMIODARONE HCL 200 MG TABLET PO SCH ×2 (12:52→20:47)
[2018-02-27] MEDS: IPRATROPIUM/ALBUTEROL 0.5-3(2.5)MG/3ML NEB INH PRN (15:55)
[2018-02-27] MEDS: DIGOXIN 125MCG TABLET PO SCH (17:53)
[2018-02-27] MEDS: RISPERIDONE 0.25MG TABLET PO SCH (20:48)
[2018-02-27] MEDS: IPRATROPIUM BROMIDE (0.02%) 0.5MG/2.5ML NEB HHN SCH (21:08)
[2018-02-28] VITALS: BP 111/52
[2018-02-28] MEDS: DILTIAZEM HCL 60MG TABLET PO SCH ×3 (00:01→12:00)
[2018-02-28] MEDS: HYDROMORPHONE HCL/PF 2MG/ML CPJ IV PRN (00:02)
[2018-02-28] MEDS: IPRATROPIUM BROMIDE (0.02%) 0.5MG/2.5ML NEB HHN SCH ×4 (02:00→21:38)
[2018-02-28] MEDS: TRAMADOL 50MG TABLET PO SCH ×3 (06:09→21:49)
[2018-02-28 06:40] LABS: BASOPHILS % 0.8 % (0.0-2.0); EOSINOPHILS % 1.6 % (0.0-5.0); HEMATOCRIT. 29.3 % (36.0-48.0); HEMOGLOBIN. 9.8 g/dL (12.0-16.0); LYMPHOCYTES % 12.1 % (20.0-50.0); MEAN CORPUSCULAR HEMOGLOBIN 30.3 pg (28.0-32.0); MEAN PLATELET VOLUME 7.6 fl (7.4-10.4); MONOCYTES % 7.8 % (2.0-8.0); NEUTROPHILS % 77.7 % (40.0-76.0); PLATELET 463 x1000/uL (130-400); RED BLOOD CELL COUNT 3.22 mill/uL (4.2-5.4); RED CELL DISTRIBUTION WIDTH 14.5 % (11.6-14.6)
[2018-02-28 06:47] LABS: CHLORIDE 103 mEq/L (98-107)
[2018-02-28 08:00] VITALS: BP 97/60
[2018-02-28] MEDS: AMIODARONE HCL 200 MG TABLET PO SCH ×2 (09:00→21:49)
[2018-02-28] MEDS: MULTIVITAMINS,THER W-MINERALS TABLET PO SCH (09:23)
[2018-02-28] MEDS: ASCORBIC ACID 500 MG TABLET PO SCH ×2 (09:23→21:49)
[2018-02-28] MEDS: ENOXAPARIN 40MG/0.4ML SYR SUBCUT SCH (09:24)
[2018-02-28] MEDS: ACETAMINOPHEN 325MG TABLET PO PRN (09:24)
[2018-02-28] MEDS: GUAIFENESIN 600MG ER TABLET PO SCH ×2 (09:24→21:49)
[2018-02-28] MEDS: DOCUSATE SODIUM 250MG CAPSULE PO SCH (09:24)
[2018-02-28] MEDS: MAGNESIUM OXIDE 400MG TABLET PO SCH (09:24)
[2018-02-28] MEDS: FERROUS SULFATE 325MG TABLET PO SCH ×3 (09:24→17:20)
[2018-02-28 12:00] VITALS: BP 97/50
[2018-02-28] MEDS: HYDROCODONE/ACETAMINOPHEN 10/325MG TABLET PO PRN ×2 (12:47→23:24)
[2018-02-28] MEDS ORDERED: BISACODYL 10MG SUPP PR PRN (14:45)
[2018-02-28 16:00] VITALS: BP 111/79
[2018-02-28] MEDS: DIGOXIN 125MCG TABLET PO SCH (17:20)
[2018-02-28] MEDS: DILTIAZEM HCL 30MG TABLET PO SCH (17:20)
[2018-02-28 20:00] VITALS: BP 126/75
[2018-02-28] MEDS: RISPERIDONE 0.25MG TABLET PO SCH (21:49)
[2018-03-01 00:10] VITALS: BP 98/69
[2018-03-01 04:35] VITALS: BP 108/72
[2018-03-01] MEDS: HYDROCODONE/ACETAMINOPHEN 10/325MG TABLET PO PRN ×3 (04:51→20:35)
[2018-03-01] MEDS: LACTULOSE 20G/30ML UDC PO PRN (04:52)
[2018-03-01] MEDS: DILTIAZEM HCL 30MG TABLET PO SCH ×4 (04:52→17:37)
[2018-03-01] MEDS: TRAMADOL 50MG TABLET PO SCH ×2 (06:35→11:53)
[2018-03-01 07:28] LABS: CHLORIDE 102 mEq/L (98-107)
[2018-03-01 07:30] LABS: BASOPHILS % 0.7 % (0.0-2.0); EOSINOPHILS % 2.5 % (0.0-5.0); HEMATOCRIT. 31.6 % (36.0-48.0); HEMOGLOBIN. 10.7 g/dL (12.0-16.0); LYMPHOCYTES % 12.9 % (20.0-50.0); MEAN CORPUSCULAR HEMOGLOBIN 30.7 pg (28.0-32.0); MEAN CORPUSCULAR VOLUME 90.4 fL (81.0-99.0); MEAN PLATELET VOLUME 7.5 fl (7.4-10.4); MONOCYTES % 9.1 % (2.0-8.0); NEUTROPHILS % 74.8 % (40.0-76.0); PLATELET 465 x1000/uL (130-400); RED CELL DISTRIBUTION WIDTH 14.5 % (11.6-14.6)
[2018-03-01 08:00] VITALS: BP 99/66
[2018-03-01] MEDS: MULTIVITAMINS,THER W-MINERALS TABLET PO SCH (08:49)
[2018-03-01] MEDS: GUAIFENESIN 600MG ER TABLET PO SCH ×2 (08:49→20:34)
[2018-03-01] MEDS: FERROUS SULFATE 325MG TABLET PO SCH ×3 (08:49→16:15)
[2018-03-01] MEDS: ASCORBIC ACID 500 MG TABLET PO SCH ×2 (08:49→20:34)
[2018-03-01] MEDS: DOCUSATE SODIUM 250MG CAPSULE PO SCH (08:49)
[2018-03-01] MEDS: MAGNESIUM OXIDE 400MG TABLET PO SCH (08:49)
[2018-03-01] MEDS: AMIODARONE HCL 200 MG TABLET PO SCH ×2 (08:51→20:35)
[2018-03-01] MEDS: IPRATROPIUM BROMIDE (0.02%) 0.5MG/2.5ML NEB HHN SCH ×3 (10:07→22:28)
[2018-03-01] MEDS ORDERED: POTASSIUM CHLORIDE 20MEQ TABLET SR PO NR (10:30)
[2018-03-01] MEDS ORDERED: AMIODARONE HCL 200 MG TABLET PO NR (10:30)
[2018-03-01 12:00] VITALS: BP 104/72
[2018-03-01] MEDS: ENOXAPARIN 40MG/0.4ML SYR SUBCUT SCH (12:30)
[2018-03-01] MEDS ORDERED: HYDROMORPHONE HCL/PF 2MG/ML CPJ IV PRN (14:45)
[2018-03-01 16:00] VITALS: BP 116/80
[2018-03-01] MEDS: DIGOXIN 125MCG TABLET PO SCH (17:26)
[2018-03-01 20:00] VITALS: BP 117/80
[2018-03-01] MEDS: RISPERIDONE 0.25MG TABLET PO SCH (20:34)
[2018-03-02] VITALS: BP 110/72
[2018-03-02] MEDS: IPRATROPIUM BROMIDE (0.02%) 0.5MG/2.5ML NEB HHN SCH (02:15)
[2018-03-02 04:00] VITALS: BP 137/79
[2018-03-02] MEDS: DILTIAZEM HCL 30MG TABLET PO SCH ×4 (05:03→17:21)
[2018-03-02 07:12] LABS: BASOPHILS % 0.6 % (0.0-2.0); EOSINOPHILS % 1.4 % (0.0-5.0); HEMATOCRIT. 34.5 % (36.0-48.0); HEMOGLOBIN. 11.2 g/dL (12.0-16.0); LYMPHOCYTES % 12.2 % (20.0-50.0); MEAN CORPUSCULAR HEMOGLOBIN 29.4 pg (28.0-32.0); MEAN PLATELET VOLUME 7.7 fl (7.4-10.4); MONOCYTES % 7.7 % (2.0-8.0); NEUTROPHILS % 78.1 % (40.0-76.0); PLATELET 465 x1000/uL (130-400); RED BLOOD CELL COUNT 3.79 mill/uL (4.2-5.4); RED CELL DISTRIBUTION WIDTH 14.4 % (11.6-14.6)
[2018-03-02] MEDS: FERROUS SULFATE 325MG TABLET PO SCH ×4 (07:40→17:40)
[2018-03-02 08:00] VITALS: BP 118/70
[2018-03-02 08:37] LABS: CHLORIDE 103 mEq/L (98-107)
[2018-03-02 08:58] LABS: DIGOXIN 0.7 ng/mL (0.9-2.0)
[2018-03-02] MEDS: ASCORBIC ACID 500 MG TABLET PO SCH ×3 (08:58→21:18)
[2018-03-02] MEDS: MULTIVITAMINS,THER W-MINERALS TABLET PO SCH ×2 (08:58→09:00)
[2018-03-02] MEDS: MAGNESIUM OXIDE 400MG TABLET PO SCH ×2 (08:58→09:00)
[2018-03-02] MEDS: GUAIFENESIN 600MG ER TABLET PO SCH ×2 (08:58→21:18)
[2018-03-02] MEDS: AMIODARONE HCL 200 MG TABLET PO SCH ×3 (08:59→21:18)
[2018-03-02] MEDS: DOCUSATE SODIUM 250MG CAPSULE PO SCH ×2 (08:59→09:00)
[2018-03-02] MEDS: ENOXAPARIN 40MG/0.4ML SYR SUBCUT SCH (09:00)
[2018-03-02] MEDS: HYDROCODONE/ACETAMINOPHEN 10/325MG TABLET PO PRN ×3 (09:58→22:16)
[2018-03-02 12:00] VITALS: BP 109/63
[2018-03-02] MEDS: ACETAMINOPHEN 325MG TABLET PO PRN (12:16)
[2018-03-02] MEDS: IPRATROPIUM/ALBUTEROL 0.5-3(2.5)MG/3ML NEB INH PRN ×2 (13:17→19:57)
[2018-03-02 15:36] LABS: CHLORIDE 103 mEq/L (98-107)
[2018-03-02 15:37] LABS: HEMATOCRIT 32.8 % (36.0-48.0); HEMOGLOBIN 10.9 g/dL (12.0-16.0); MEAN CORPUSCULAR VOLUME 90.3 fL (81.0-99.0); PLATELET 458 x1000/uL (130-400); RED BLOOD CELL COUNT 3.63 mill/uL (4.2-5.4); RED CELL DISTRIBUTION WIDTH 14.8 % (11.6-14.6)
[2018-03-02 16:25] VITALS: BP 111/72
[2018-03-02] MEDS: BENZONATATE 100MG CAPSULE PO PRN (17:21)
[2018-03-02] MEDS: DIGOXIN 125MCG TABLET PO SCH (17:50)
[2018-03-02 20:00] VITALS: BP 97/55
[2018-03-02] MEDS ORDERED: BUPIVACAINE HCL/PF 0.5% (5MG/ML) 10ML INFIL SCH (20:15)
[2018-03-02] MEDS ORDERED: TRIAMCINOLONE ACETONIDE 40MG/ML 1ML VIAL IJ SCH (20:15)
[2018-03-02] MEDS: RISPERIDONE 0.25MG TABLET PO SCH (21:18)
[2018-03-03] VITALS: BP 109/69
[2018-03-03] MEDS: DILTIAZEM HCL 30MG TABLET PO SCH ×4 (00:22→17:44)
[2018-03-03] MEDS: IPRATROPIUM BROMIDE (0.02%) 0.5MG/2.5ML NEB HHN SCH ×4 (02:30→20:41)
[2018-03-03 04:54] VITALS: BP 106/64
[2018-03-03] MEDS: FERROUS SULFATE 325MG TABLET PO SCH ×3 (07:40→17:40)
[2018-03-03 08:00] VITALS: BP 101/74
[2018-03-03] MEDS: GUAIFENESIN 600MG ER TABLET PO SCH ×2 (09:00→20:32)
[2018-03-03] MEDS: DOCUSATE SODIUM 250MG CAPSULE PO SCH (09:00)
[2018-03-03] MEDS: MAGNESIUM OXIDE 400MG TABLET PO SCH (09:00)
[2018-03-03] MEDS: ASCORBIC ACID 500 MG TABLET PO SCH ×2 (09:00→20:32)
[2018-03-03] MEDS: ENOXAPARIN 40MG/0.4ML SYR SUBCUT SCH (09:12)
[2018-03-03] MEDS: AMIODARONE HCL 200 MG TABLET PO SCH ×2 (09:13→20:32)
[2018-03-03] MEDS: HYDROCODONE/ACETAMINOPHEN 10/325MG TABLET PO PRN ×2 (09:13→14:41)
[2018-03-03] MEDS: MULTIVITAMINS,THER W-MINERALS TABLET PO SCH (09:13)
[2018-03-03 12:00] VITALS: BP 96/70
[2018-03-03] MEDS: BENZONATATE 100MG CAPSULE PO PRN (12:49)
[2018-03-03 16:00] VITALS: BP 100/74
[2018-03-03] MEDS: DIGOXIN 125MCG TABLET PO SCH (17:44)
[2018-03-03 20:00] VITALS: BP 129/81
[2018-03-03] MEDS: RISPERIDONE 0.25MG TABLET PO SCH (20:32)
[2018-03-04] VITALS (7 sets, daily range): BP systolic 104–140; BP diastolic 66–80
[2018-03-04] MEDS: HYDROCODONE/ACETAMINOPHEN 10/325MG TABLET PO PRN ×3 (00:51→14:59)
[2018-03-04] MEDS: DILTIAZEM HCL 30MG TABLET PO SCH ×4 (05:14→17:44)
[2018-03-04 06:48] LABS: BASOPHILS % 0.3 % (0.0-2.0); HEMATOCRIT. 34.4 % (36.0-48.0); HEMOGLOBIN. 11.2 g/dL (12.0-16.0); LYMPHOCYTES % 11.1 % (20.0-50.0); MEAN CORPUSCULAR HEMOGLOBIN 29.5 pg (28.0-32.0); MEAN CORPUSCULAR VOLUME 90.4 fL (81.0-99.0); MEAN PLATELET VOLUME 7.4 fl (7.4-10.4); MONOCYTES % 4.7 % (2.0-8.0); NEUTROPHILS % 83.9 % (40.0-76.0); PLATELET 514 x1000/uL (130-400); RED CELL DISTRIBUTION WIDTH 14.5 % (11.6-14.6)
[2018-03-04 06:55] LABS: CHLORIDE 105 mEq/L (98-107)
[2018-03-04] MEDS: FERROUS SULFATE 325MG TABLET PO SCH ×3 (07:40→17:43)
[2018-03-04] MEDS: IPRATROPIUM BROMIDE (0.02%) 0.5MG/2.5ML NEB HHN SCH ×2 (07:45→14:04)
[2018-03-04] MEDS: DOCUSATE SODIUM 250MG CAPSULE PO SCH (09:00)
[2018-03-04] MEDS: ENOXAPARIN 40MG/0.4ML SYR SUBCUT SCH (09:00)
[2018-03-04] MEDS: ASCORBIC ACID 500 MG TABLET PO SCH (09:00)
[2018-03-04] MEDS: MAGNESIUM OXIDE 400MG TABLET PO SCH (09:00)
[2018-03-04] MEDS: GUAIFENESIN 600MG ER TABLET PO SCH (09:00)
[2018-03-04] MEDS: MULTIVITAMINS,THER W-MINERALS TABLET PO SCH (09:00)
[2018-03-04] MEDS: AMIODARONE HCL 200 MG TABLET PO SCH (09:09)
[2018-03-04] MEDS: DIGOXIN 125MCG TABLET PO SCH (17:44)
== END 2018-03-04 21:25 | DRG 463 ==
LOC: ER 12:16 → EDBEDREQ 13:33 → 5WST 15:43 → EDBEDREQ 15:45 → EDBEDREQSVC 15:45 → EDBEDREQTM 15:45 → ENRESERV 16:40 → MICUSO 02-15 08:30 → 8WST 02-17 11:10
PROVIDERS: ADMIT Family Medicine Adult Medicine; ATTEND Family Medicine Adult Medicine
PROC: 0JB70ZZ Excision of Back Subcutaneous Tissue and Fascia, Open Approach (ICD-10-PCS; principal; 2018-02-14)
PROC: 0JBM0ZZ Excision of Left Upper Leg Subcutaneous Tissue and Fascia, Open Approach (ICD-10-PCS; 2018-02-16)
PROC: 0SRR0JA Replacement of Right Hip Joint, Femoral Surface with Synthetic Substitute, Uncemented, Open Approach (ICD-10-PCS; 2018-02-22)
DX: S72.011A Unspecified intracapsular fracture of right femur, initial encounter for closed fracture (principal); L89.153 Pressure ulcer of sacral region, stage 3; A41.9 Sepsis, unspecified organism; J96.01 Acute respiratory failure with hypoxia; J69.0 Pneumonitis due to inhalation of food and vomit; E43 Unspecified severe protein-calorie malnutrition; J44.1 Chronic obstructive pulmonary disease with (acute) exacerbation; I42.9 Cardiomyopathy, unspecified; M62.82 Rhabdomyolysis; N39.0 Urinary tract infection, site not specified; I50.30 Unspecified diastolic (congestive) heart failure; I47.1 Supraventricular tachycardia; S72.421A Displaced fracture of lateral condyle of right femur, initial encounter for closed fracture; I11.0 Hypertensive heart disease with heart failure; D64.9 Anemia, unspecified; K59.00 Constipation, unspecified; W18.30XA Fall on same level, unspecified, initial encounter; R32 Unspecified urinary incontinence; E86.0 Dehydration; F41.9 Anxiety disorder, unspecified; G89.29 Other chronic pain; I48.0 Paroxysmal atrial fibrillation; M19.90 Unspecified osteoarthritis, unspecified site; M81.0 Age-related osteoporosis without current pathological fracture; Z87.891 Personal history of nicotine dependence; Z87.81 Personal history of (healed) traumatic fracture; I34.0 Nonrheumatic mitral (valve) insufficiency; W18.39XA Other fall on same level, initial encounter; Y93.89 Activity, other specified; Y92.89 Other specified places as the place of occurrence of the external cause; Y99.8 Other external cause status; S83.013A Lateral subluxation of unspecified patella, initial encounter; Z91.81 History of falling; Z60.2 Problems related to living alone; S70.212A Abrasion, left hip, initial encounter; L89.300 Pressure ulcer of unspecified buttock, unstageable; M54.9 Dorsalgia, unspecified; R29.6 Repeated falls; B96.20 Unspecified Escherichia coli [E. coli] as the cause of diseases classified elsewhere; Z88.6 Allergy status to analgesic agent; Z88.8 Allergy status to other drugs, medicaments and biological substances; Z79.899 Other long term (current) drug therapy; Z53.9 Procedure and treatment not carried out, unspecified reason; Z68.20 Body mass index [BMI] 20.0-20.9, adult
CPT/HCPCS: 36415; 36600; 71045; 71275; 72170; 72192; 73502; 73552; 73560; 73562; 73610; 73700; 78580; 80048; 80053; 80061; 80076; 80162; 80305; 81003; 82375; 82550; 82805; 82962; 83690; 83735; 83880; 84100; 84134; 84439; 84443; 84484; 85025; 85027; 85379; 85610; 85730; 86850; 86900; 86920; 87040; 87070; 87077; 87086; 87186; 88305; 88311; 93005; 93306; 93970; 93971; 94003; 94640; 96361; 96374; 96375; 99285; A4216; A6261; C1776; C1893; G0482; J0690; J1100; J1160; J1170; J1200; J1650; J1885; J1956; J2250; J2270; J2274; J2370; J2405; J2704; J2710; J2795; J3010; J3301; J3370; J3490; J7030; J7040; J7050; J7060; J7620; J7626; Q9967; A4315